=== PATIENT | female | born 1955 | race Caucasian/White ===

== ENCOUNTER 2018-03-11 23:54 | Inpatient (IN) | payer OTHER ==
[2018-03-12 00:31] LABS: WHITE BLOOD COUNT 42.3 10^3/ul (4.8-10.8)
[2018-03-12 00:32] LABS: ABNORMAL IP MESSAGE 1; HEMOGLOBIN 8.8 g/dl (12.0-16.0); MEAN CORPUSCULAR HEMOGLOBIN 29.5 pg (29.0-33.0); MEAN CORPUSCULAR HGB CONC 32.6 g/dl (32.0-37.0); MEAN CORPUSCULAR VOLUME 90.6 fl (82.0-101.0); NUCLEATED RED BLOOD CELLS% 1.3 /100WBC (0.0-0.0); PLATELET COUNT 44 10^3/UL (140-415); RED BLOOD COUNT 2.98 10^6/ul (4.20-5.40); RED CELL DISTRIBUTION WIDTH 24.7 % (11.5-14.5)
[2018-03-12 00:39] LABS: ALANINE AMINOTRANSFERASE 118 IU/L (13-69); ALBUMIN 2.3 g/dl (3.3-4.9); ALKALINE PHOSPHATASE 1099 IU/L (42-121); ANION GAP 13 (5-13); ASPARTATE AMINO TRANSFERASE 206 IU/L (15-46); BLOOD UREA NITROGEN 30 mg/dl (7-20); CALCIUM 8.7 mg/dl (8.4-10.2); CARBON DIOXIDE 15 mmol/L (21-31); CHLORIDE 113 mmol/L (97-110); CREATININE 2.17 mg/dl (0.44-1.00); Estimated GFR 23 mL/min (>60); POTASSIUM 3.2 mmol/L (3.5-5.1); SODIUM 141 mmol/L (135-144); TOTAL PROTEIN 4.6 g/dl (6.1-8.1)
[2018-03-12] MEDS: GLUCAGON 1 MG INJ IM (00:41)
[2018-03-12 00:43] LABS: POSITIVE DIFF @See below
[2018-03-12] MEDS: SODIUM CHLORIDE 0.9% 1L BAG IV* ×2 (00:43→01:01)
[2018-03-12 00:44] LABS: ADD MAN DIFF? YES
[2018-03-12 00:48] LABS: PARTIAL THROMBOPLASTIN TIME 61.4 Sec (23.0-35.0)
[2018-03-12 00:50] LABS: TROPONIN-I 0.088 ng/ml (0.000-0.120)
[2018-03-12 00:52] LABS: BILIRUBIN,INDIRECT 4.1 mg/dl (0-1.1); BILIRUBIN,TOTAL 30.1 mg/dl (0.2-1.3)
[2018-03-12 00:59] LABS: GLUCOSE 25 mg/dl (70-220)
[2018-03-12] MEDS: DEXTROSE 50% 50 ML SYRINGE IV ×3 (01:21→06:44)
[2018-03-12] MEDS: NALOXONE (0.4 MG/ML) INJ IV ×2 (01:23→05:45)
[2018-03-12 01:42] LABS: ANISOCYTOSIS 3+ (0-0); BAND NEUTROPHILS #M 1.2 10^3/ul (0.0-0.6); BAND NEUTROPHILS % (M) 3 % (0-4); EOSINOPHILS % (M) 1 % (0-7); LYMPHOCYTES #M 3.3 10^3/ul (0.8-2.9); LYMPHOCYTES % (M) 8 % (15-51); METAMYELOCYTES #M 0.4 10^3/ul (0.0-0.0); METAMYELOCYTES %M 1 % (0-0); MONOCYTE #M 3.3 10^3/ul (0.3-0.9); MONOCYTES % (M) 8 % (0-11); MYELOCYTES #M 1.2 10^3/ul (0.0-0.0); MYELOCYTES % (M) 3 % (0-0); PLATELET ESTIMATE SIG DECREASED; POIKILOCYTOSIS 1+ (0-0); POLYCHROMASIA 2+ (0-0); PROMYELOCYTES #M 0.4 10^3/ul (0-0); PROMYELOCYTES % (M) 1 % (0-0); SEG NEUT #M 32.2 10^3/ul (1.6-7.5); SEGMENTED NEUTROPHILS (M) % 75 % (39-77); SMUDGE%M 9 % (0-0)
[2018-03-12] MEDS: MEROPENEM 1 GM/50ML(PMX) 50 ML IVPB (02:23)
[2018-03-12 03:07] LABS: AMMONIA 36 umol/l (9-30)
[2018-03-12] MEDS: VANCOMYCIN 1 GM (PMX) 250 ML IVPB (03:20)
[2018-03-12] MEDS ORDERED: ALBUMIN HUMAN 25% 100 ML IV (05:30)
[2018-03-12] MEDS: ALBUMIN HUMAN 25% 50 ML INJ IV (05:45)
[2018-03-12] MEDS: LIDOCAINE 1% (MPF) 5 ML VIAL SC (06:00)
[2018-03-12] MEDS ORDERED: ALBUTEROL/IPRATROPIUM (NEB) 3 ML AMP NEB (06:30)
[2018-03-12] MEDS ORDERED: VANCOMYCIN IV PER PHARMACY XX (06:30)
[2018-03-12] MEDS: SOD CHLORIDE 0.9% 500 ML IV (06:30)
[2018-03-12] MEDS ORDERED: ONDANSETRON 4 MG INJ IV (06:30)
[2018-03-12] MEDS ORDERED: ACETAMINOPHEN 325 MG TAB PO (06:30)
[2018-03-12] MEDS ORDERED: LACTULOSE 30ML CUP NGT (06:30)
[2018-03-12 06:36] LABS: LACTIC ACID 2.1 mmol/L (0.5-2.0)
[2018-03-12] MEDS: LEVOTHYROXINE 137 MCG TAB PO (07:00)
[2018-03-12] MEDS: DEXTROSE 5%-0.45% NACL 1,000 ML IV ×2 (07:08→16:24)
[2018-03-12] MEDS: POTASSIUM CHLORIDE 100 ML IVPB (07:08)
[2018-03-12 08:40] LABS: HAAIG REFLEX REFLEX FILED
[2018-03-12 08:54] LABS: WHITE BLOOD COUNT 42.6 10^3/ul (4.8-10.8)
[2018-03-12 08:54] LABS: ABNORMAL IP MESSAGE 1; HEMOGLOBIN 7.1 g/dl (12.0-16.0); MEAN CORPUSCULAR HEMOGLOBIN 30.2 pg (29.0-33.0); MEAN CORPUSCULAR HGB CONC 32.3 g/dl (32.0-37.0); MEAN CORPUSCULAR VOLUME 93.6 fl (82.0-101.0); MEAN PLATELET VOLUME 10.2 fl (7.4-10.4); NUCLEATED RED BLOOD CELLS% 1.1 /100WBC (0.0-0.0); PLATELET COUNT 35 10^3/UL (140-415); RED BLOOD COUNT 2.35 10^6/ul (4.20-5.40); RED CELL DISTRIBUTION WIDTH 24.6 % (11.5-14.5)
[2018-03-12 09:02] LABS: ADD MAN DIFF? YES; ALANINE AMINOTRANSFERASE 93 IU/L (13-69); ALBUMIN 2.1 g/dl (3.3-4.9); ALBUMIN/GLOBULIN RATIO 1.05; ALKALINE PHOSPHATASE 837 IU/L (42-121); ANION GAP 14 (5-13); ASPARTATE AMINO TRANSFERASE 119 IU/L (15-46); BLOOD UREA NITROGEN 30 mg/dl (7-20); CALCIUM 8.5 mg/dl (8.4-10.2); CARBON DIOXIDE 14 mmol/L (21-31); CHLORIDE 113 mmol/L (97-110); CREATININE 2.37 mg/dl (0.44-1.00); Estimated GFR 21 mL/min (>60); GLUCOSE 64 mg/dl (70-220); POSITIVE DIFF @See below; POTASSIUM 3.1 mmol/L (3.5-5.1); SODIUM 141 mmol/L (135-144); TOTAL PROTEIN 4.1 g/dl (6.1-8.1)
[2018-03-12] MEDS ORDERED: GLUCAGON 1 MG INJ IM (09:30)
[2018-03-12] MEDS ORDERED: DEXTROSE 50% 50 ML SYRINGE IV ×2 (09:30)
[2018-03-12] MEDS ORDERED: GLUCOSE GEL 15 GRAM TUBE PO ×2 (09:30)
[2018-03-12] MEDS ORDERED: GLUCOSE GEL 15 GRAM TUBE BUCCAL (09:30)
[2018-03-12 09:33] LABS: HEPATITIS B SURFACE ANTIGEN NEGATIVE (NEGATIVE)
[2018-03-12 09:38] LABS: BILIRUBIN,TOTAL 31.2 mg/dl (0.2-1.3)
[2018-03-12 09:42] LABS: THYROID STIMULATING HORMONE < 0.015 MIU/L (0.465-4.680)
[2018-03-12 09:42] LABS: BILIRUBIN,INDIRECT 4.6 mg/dl (0-1.1)
[2018-03-12 09:51] LABS: HEPATITIS B CORE ANTIBODY NEGATIVE (NEGATIVE); HEPATITIS C VIRAL ANTIBODY NEGATIVE (NEGATIVE)
[2018-03-12] MEDS: METHYLPREDNISOLONE 125 MG INJ IV ×2 (09:56→21:58)
[2018-03-12] MEDS: FAMOTIDINE 20 MG INJ IV (09:56)
[2018-03-12] MEDS: CEFEPIME 1GM/50 ML (PMX) 50 ML IVPB ×2 (09:57→21:57)
[2018-03-12] MEDS: LACTULOSE ENEMA 1,000 ML BTL PR (10:00)
[2018-03-12 10:31] LABS: HEMATOCRIT 22.9 % (37.0-47.0); HEMOGLOBIN 7.5 g/dl (12.0-16.0)
[2018-03-12 10:56] LABS: LACTIC ACID 2.1 mmol/L (0.5-2.0)
[2018-03-12 11:07] LABS: HEPATITIS B SURFACE ANTIBODY INDETERMINATE (NEGATIVE)
[2018-03-12 11:08] LABS: ANISOCYTOSIS 2+ (0-0); BAND NEUTROPHILS #M 0.4 10^3/ul (0.0-0.6); BAND NEUTROPHILS % (M) 1 % (0-4); BURR CELLS 2+ (0-0); ERYTHROBLAST% (NRBC) (M) 2 % (0-0); GIANT THROMBO% (M) 1 % (0-0); LYMPHOCYTES #M 4.6 10^3/ul (0.8-2.9); LYMPHOCYTES % (M) 11 % (15-51); METAMYELOCYTES #M 0.4 10^3/ul (0.0-0.0); METAMYELOCYTES %M 1 % (0-0); MONOCYTE #M 6.3 10^3/ul (0.3-0.9); MONOCYTES % (M) 15 % (0-11); MYELOCYTES #M 0.4 10^3/ul (0.0-0.0); MYELOCYTES % (M) 1 % (0-0); PLATELET ESTIMATE SIG DECREASED; POIKILOCYTOSIS 3+ (0-0); POLYCHROMASIA 3+ (0-0); SCHISTOCYTES 1+ (0-0); SEG NEUT #M 30.4 10^3/ul (1.6-7.5); SEGMENTED NEUTROPHILS (M) % 71 % (39-77); TARGET CELLS 1+ (0-0)
[2018-03-12] MEDS: NORepinephrine 8MG/250 ML (PMX 250 ML IV (11:30)
[2018-03-12] MEDS: VANCOMYCIN 750 MG in SOD CHLORIDE 0.9% 150 ML IVPB (14:40)
[2018-03-12 15:36] LABS: LACTIC ACID 1.6 mmol/L (0.5-2.0)
[2018-03-12] MEDS: LATANOPROST 0.005% 2.5 ML OPH BOTH EYES (21:58)
[2018-03-13] MEDS: LACTULOSE ENEMA 1,000 ML BTL PR ×2 (00:36→08:24)
[2018-03-13] MEDS: DEXTROSE 5%-0.45% NACL 1,000 ML IV (04:12)
[2018-03-13 06:20] LABS: ABNORMAL IP MESSAGE 1; HEMATOCRIT 25.2 % (37.0-47.0); HEMOGLOBIN 8.5 g/dl (12.0-16.0); MEAN CORPUSCULAR HEMOGLOBIN 29.6 pg (29.0-33.0); MEAN CORPUSCULAR HGB CONC 33.7 g/dl (32.0-37.0); MEAN CORPUSCULAR VOLUME 87.8 fl (82.0-101.0); MEAN PLATELET VOLUME 10.6 fl (7.4-10.4); NUCLEATED RED BLOOD CELLS% 0.4 /100WBC (0.0-0.0); PLATELET COUNT 41 10^3/UL (140-415); RED BLOOD COUNT 2.87 10^6/ul (4.20-5.40); RED CELL DISTRIBUTION WIDTH 23.3 % (11.5-14.5)
[2018-03-13 06:20] LABS: WHITE BLOOD COUNT 57.2 10^3/ul (4.8-10.8)
[2018-03-13 06:39] LABS: ADD MAN DIFF? YES; POSITIVE DIFF @See below
[2018-03-13 06:47] LABS: ALANINE AMINOTRANSFERASE 82 IU/L (13-69); ALBUMIN 2.2 g/dl (3.3-4.9); ALKALINE PHOSPHATASE 1082 IU/L (42-121); ASPARTATE AMINO TRANSFERASE 75 IU/L (15-46); TOTAL PROTEIN 4.5 g/dl (6.1-8.1)
[2018-03-13 06:47] LABS: AMMONIA 28 umol/l (9-30)
[2018-03-13] MEDS: LEVOTHYROXINE 137 MCG TAB PO (07:00)
[2018-03-13 07:07] LABS: LACTIC ACID 2.2 mmol/L (0.5-2.0)
[2018-03-13 08:01] LABS: BILIRUBIN,TOTAL 32.5 mg/dl (0.2-1.3)
[2018-03-13 08:13] LABS: ANION GAP 16 (5-13); BLOOD UREA NITROGEN 33 mg/dl (7-20); CALCIUM 8.7 mg/dl (8.4-10.2); CARBON DIOXIDE 12 mmol/L (21-31); CHLORIDE 117 mmol/L (97-110); CREATININE 2.54 mg/dl (0.44-1.00); Estimated GFR 19 mL/min (>60); GLUCOSE 154 mg/dl (70-220); POTASSIUM 3.2 mmol/L (3.5-5.1); SODIUM 145 mmol/L (135-144)
[2018-03-13 08:16] LABS: ANISOCYTOSIS 3+ (0-0); BAND NEUTROPHILS #M 3.4 10^3/ul (0.0-0.6); BAND NEUTROPHILS % (M) 6 % (0-4); BURR CELLS 2+ (0-0); HYPOCHROMASIA 1+ (0-0); LYMPHOCYTES #M 0.5 10^3/ul (0.8-2.9); LYMPHOCYTES % (M) 1 % (15-51); MONOCYTE #M 3.4 10^3/ul (0.3-0.9); MONOCYTES % (M) 6 % (0-11); MYELOCYTES #M 0.5 10^3/ul (0.0-0.0); MYELOCYTES % (M) 1 % (0-0); PLATELET ESTIMATE SIG DECREASED; POIKILOCYTOSIS 3+ (0-0); POLYCHROMASIA 3+ (0-0); SCHISTOCYTES 1+ (0-0); SEG NEUT #M 51.1 10^3/ul (1.6-7.5); SEGMENTED NEUTROPHILS (M) % 86 % (39-77); SMUDGE%M 4 % (0-0); TARGET CELLS 2+ (0-0); TEAR DROP CELLS 1+ (0-0)
[2018-03-13] MEDS: METHYLPREDNISOLONE 125 MG INJ IV (08:22)
[2018-03-13] MEDS: FAMOTIDINE 20 MG INJ IV (08:22)
[2018-03-13] MEDS: CEFEPIME 1GM/50 ML (PMX) 50 ML IVPB (08:22)
[2018-03-13] MEDS: OCTREOTIDE 50 MCG INJ SC ×2 (09:00→13:00)
[2018-03-13] MEDS: SODIUM BICARBONATE IV (09:04)
[2018-03-13] MEDS: DEXTROSE IV (09:04)
[2018-03-13] MEDS: NACL IV (09:04)
[2018-03-13 10:28] LABS: LACTIC ACID 2.1 mmol/L (0.5-2.0)
[2018-03-13] MEDS ORDERED: VANCOMYCIN 1 GM 250 ML IVPB (11:00)
[2018-03-13 15:25] LABS: LACTIC ACID 1.9 mmol/L (0.5-2.0)
[2018-03-14] MEDS ORDERED: VANCOMYCIN 1 GM 250 ML IVPB (03:00)
[2018-03-14] MEDS ORDERED: CEFEPIME 1GM/50 ML (PMX) 50 ML IVPB (09:00)
[2018-03-14 09:56] LABS: ANA SCREEN NEGATIVE (NEGATIVE)
[2018-03-15 11:33] LABS: MITOCHONDRIAL TB NEGATIVE (NEGATIVE); SMOOTH MUSCLE AB SCREEN NEGATIVE (NEGATIVE)
== END 2018-03-13 17:20 | disposition short-term general hospital (02) | DRG 871 ==
LOC: E/R 23:54 → ICU 03-12 03:54
PROVIDERS: Internal Medicine
PROC: 02HV33Z Insertion of Infusion Device into Superior Vena Cava, Percutaneous Approach (ICD-10-PCS; principal; 2018-03-12)
PROC: B548ZZA Ultrasonography of Superior Vena Cava, Guidance (ICD-10-PCS; 2018-03-12)
DX: A41.9 Sepsis, unspecified organism (principal); K72.00 Acute and subacute hepatic failure without coma; R65.21 Severe sepsis with septic shock; E87.2 Acidosis; N17.9 Acute kidney failure, unspecified; K83.01 Primary sclerosing cholangitis; D69.59 Other secondary thrombocytopenia; E03.9 Hypothyroidism, unspecified; E16.2 Hypoglycemia, unspecified; D86.9 Sarcoidosis, unspecified
CPT/HCPCS: 36415; 36569; 71045; 74181; 76700; 76937; 80048; 80053; 80076; 82140; 82962; 83605; 84443; 84484; 85014; 85018; 85025; 85610; 85730; 86038; 86255; 86704; 86706; 86709; 86803; 87040; 87340; 93005; 96374; 96375; 99291-25